=== PATIENT | male | born 1975 | race Hispanic/Latino ===

== ENCOUNTER 2021-08-01 13:09 | Emergency (ER) | payer OTHER, SELFPAY | END 2021-08-01 15:35 | disposition home or self-care (01) | LOC: ERS 13:09 | DX: S06.9X9A Unspecified intracranial injury with loss of consciousness of unspecified duration, initial encounter (principal); M54.2 Cervicalgia; W00.1XXA Fall from stairs and steps due to ice and snow, initial encounter | CPT/HCPCS: 70450; 72125 ==